=== PATIENT | male | born 1965 | race Caucasian/White ===

== ENCOUNTER 2018-02-16 18:55 | Emergency (ER) | payer MEDICAID ==
[~2018-02-16] VITALS: Ht 180.3 cm; Wt 137.3 kg
[2018-02-16] MEDS ORDERED: CLOPIDOGREL75 MG PO (21:16)
[2018-02-16] MEDS ORDERED: ASPIR-LOW81 MG PO (21:16)
[2018-02-16] MEDS ORDERED: LIPITOR20 MG PO (21:17)
[2018-02-16] MEDS ORDERED: DIGITEK250 MCG PO (21:17)
[2018-02-16] MEDS ORDERED: GABAPENTIN300 MG PO (21:18)
[2018-02-16] MEDS ORDERED: FUROSEMIDE40 MG PO (21:18)
[2018-02-16] MEDS ORDERED: FLOMAX0.4 MG PO (21:19)
[2018-02-16] MEDS ORDERED: METOPROLOL TAR100 MG PO (21:19)
[2018-02-16] MEDS ORDERED: MULTI VITAMIN1 EACH PO (21:20)
[2018-02-16] MEDS ORDERED: LISINOPRIL20 MG PO (21:20)
[2018-02-16] MEDS ORDERED: MAGNESIUM OXID400 MG PO (21:21)
[2018-02-16] MEDS ORDERED: FOLIC ACID1 MG PO (21:21)
== END 2018-02-16 19:49 | disposition home or self-care (01) ==
LOC: ED 18:55
DX: I11.0 Hypertensive heart disease with heart failure (principal); I50.9 Heart failure, unspecified
CPT/HCPCS: 99282